=== PATIENT | female | born 1995 ===

== ENCOUNTER → 2021-10-30 | Outpatient (CLI) | payer OTHER | END | disposition home or self-care (01) | LOC: LABWHC1 09:17 | PROVIDERS: ATTEND Obstetrics & Gynecology | DX: O20.0 Threatened abortion (principal); Z3A.00 Weeks of gestation of pregnancy not specified | CPT/HCPCS: 36415; 84702 ==

== ENCOUNTER 2021-12-31 16:54 | Emergency (ER) | payer OTHER ==
[2021-12-31 17:20] VITALS: BP 108/71; PULSE 60; RESP 16; TEMP 98.6
[2021-12-31] MEDS ORDERED: KETOROLAC 15 MG/ML 1 ML VIAL IM STA (19:11)
[2021-12-31] MEDS ORDERED: HYDROcodone/APAP 5-325MG 1 EACH TAB PO STA (19:11)
--- NOTE | 2021-12-31 19:19 | ED ---
ENT HPI - General Chief complaint: ENT Stated complaint: R ear pain Time Seen by Provider: 12/31/21 19:06 Source: patient, RN notes reviewed Mode of arrival: ambulatory Limitations: no limitations - History of Present Illness Initial comments: This is a pleasant 26-year-old female with a history of seizure disorder. She presents to the emergency department today complaining of right ear pain was going about 48 hours. She states movement of the external ear exacerbates the pain. Fever chills. Patient states the pain seems to be getting worse. Patient is been trying [id number] ibuprofen. She also had some old antibiotic drops that she got from a friend that she has been using. No headache, no fever or chills, no changes in vision no sore throat or difficulty with speech, no neck pain, no chest pain or shortness of breath, no abdominal pain, no nausea or vomiting, no changes in urination or bowel movements, no numbness or tingling, no extremity pain, no skin rashes or lesions. MD complaint: ear pain - Related Data Previous Rx's Medication Instructions Recorded Ciprofloxacin-Dexameth [Ciprodex 4 drops RIGHT EAR BID #7.5 ml 12/31/21 Otic Susp] HYDROcodone/APAP 5-325MG [[place] 1 tab PO Q6HR PRN 3 Days #12 tab 12/31/21 5-325] Ibuprofen [Motrin] 600 mg PO Q8HR PRN #30 tab 12/31/21 Allergies Allergy/AdvReac Type Severity Reaction Status Date / Time bee venom protein (honey bee) Allergy Anaphylaxis Verified 12/31/21 17:16 Review of Systems ROS Statement: Those systems with pertinent positive or pertinent negative responses have been documented in the HPI. ROS Other: All systems not noted in ROS Statement are negative. Past Medical History Past Medical History: Seizure Disorder History of Any Multi-Drug Resistant Organisms: None Reported Additional Past Surgical History / Comment(s): EGD, Uterine ablation Past Psychological History: No Psychological Hx Reported Smoking Status: Never smoker Past Alcohol Use History: None Reported Past Drug Use History: None Reported, Marijuana General Exam Limitations: no limitations General appearance: alert, in distress Head exam: Present: atraumatic, normocephalic, normal inspection Eye exam: Present: normal appearance, PERRL, EOMI. Absent: scleral icterus, conjunctival injection, periorbital swelling ENT exam: Present: normal exam, normal oropharynx, mucous membranes moist, other (Patient has partial cerumen bilaterally. There is edema to the right EAC. Patient has pain with movement of the auricle and pressure over the tragus. Tympanic membranes not visualized. Left TM is pearly freeman.). Absent: mucous membranes dry Neck exam: Present: normal inspection. Absent: tenderness, meningismus, lymphadenopathy Respiratory exam: Present: normal lung sounds bilaterally. Absent: respiratory distress, wheezes, rales, rhonchi, stridor Cardiovascular Exam: Present: regular rate, normal rhythm, normal heart sounds. Absent: systolic murmur, diastolic murmur, rubs, gallop, clicks GI/Abdominal exam: Present: soft, normal bowel sounds. Absent: distended, tenderness, guarding, rebound, rigid Extremities exam: Present: normal inspection, full ROM, normal capillary refill. Absent: tenderness, pedal edema, joint swelling, calf tenderness Back exam: Present: normal inspection Neurological exam: Present: alert, oriented X3, CN II-XII intact Psychiatric exam: Present: normal affect, normal mood Skin exam: Present: warm, dry, intact, normal color. Absent: rash Course Vital Signs 12/31/21 17:16 Temperature 98.6 F Pulse Rate 60 Respiratory 16 Rate Blood Pressure 108/71 O2 Sat by Pulse 96 Oximetry Medical Decision Making - Medical Decision Making She does have partial cerumen obstruction bilaterally. Patient has exquisite tenderness with movement of the right external ear and palpation over the tragus. There is edema to the canal. TM is not visualized on the right. No significant drainage. Certainly the patient would not tolerate irrigation of the ear at this time. I'm going to place the patient on antibiotic drops, Ciprodex was ordered. Patient will be given follow-up with your nose and throat. Discussed treatment plan. Patient concurs. Short course of [place] given for the patient's level of pain. Patient was told to return to the ER for any signs or symptoms worsen. Told to return immediately if any other problems arise. All questions answered. Treatment plan discussed. Patient in agreement Every effort has been made to ensure accuracy of this dictation. However, due to the limitations of electronic medical records and dictation devices, errors in charting still occur. Supervising physician is Dr. Banegas Disposition Clinical Impression: Otitis externa Narrative: Otitis externa, right ear Disposition: HOME SELF-CARE Condition: Good Instructions (If sedation given, give patient instructions): Swimmer's Ear (ED) Additional Instructions: Eardrops as directed. Continue ibuprofen with pain medicine. Make an appointment with ENT doctor. Call first thing Tuesday morning for the follow-up appointment. Use eardrops for the 7 days. Follow-up with your regular physician as directed. Return to the ER immediately if any symptoms worsen, new symptoms arise, or any other problems develop. Is patient prescribed a controlled substance at d/c from ED?: Yes When asked, does pt state using other controlled substances?: No If prescribed controlled substance>3 days was MAPS reviewed?: Prescribed <3 Days Referrals: Sky Sharma MD [STAFF PHYSICIAN] - 01/05/22 Time of Disposition: 19:17
== END 2021-12-31 19:22 | disposition home or self-care (01) ==
LOC: EC 16:54
DX: H92.01 Otalgia, right ear (principal); Z91.030 Bee allergy status
CPT/HCPCS: 99284; 96372; J1885

== ENCOUNTER 2022-04-16 21:42 | Emergency (ER) | payer OTHER ==
[2022-04-16 21:48] VITALS: TEMP 98.1
[2022-04-16] MEDS ORDERED: SODIUM CHLORIDE 0.9% 1,000 ML IV STA (22:35)
[2022-04-16 23:21] LABS: Basophils % (A) 0 %; Eosinophils % (A) 0 %; HCT 37.6 % (34.0-46.0); HGB 11.9 gm/dL (11.4-16.0); Lymphocytes # (A) 0.9 k/uL (1.0-4.8); Lymphocytes % (A) 11 %; MCH 27.6 pg (25.0-35.0); MCHC 31.5 g/dL (31.0-37.0); MCV 87.5 fL (80.0-100.0); Mean Platelet Volume 7.2; Monocytes # (A) 0.1 k/uL (0-1.0); Monocytes % (A) 1 %; Neutrophils # (A) 7.6 k/uL (1.3-7.7); Neutrophils % (A) 87 %; Platelet Count 361 k/uL (150-450); RDW 12.8 % (11.5-15.5); WBC 8.7 k/uL (3.8-10.6)
[2022-04-16 23:32] LABS: Appearance,Urine Clear (Clear); Bilirubin,Urine Negative (Negative); Blood,Urine Negative (Negative); Color,Urine Yellow; Glucose,Urine (UA) Negative (Negative); Ketones,Urine Negative (Negative); Leukocyte Esterase,Urine Negative (Negative); Nitrite,Urine Negative (Negative); PH, Urine 7.5 (5.0-8.0); Protein,Urine Trace (Negative); Specific Gravity,Urine 1.027 (1.001-1.035); Urobilinogen,Urine <2.0 mg/dL (<2.0)
[2022-04-16] MEDS ORDERED: LORazepam 2 MG/ML INJ IV STA (23:34)
[2022-04-16 23:52] LABS: Amphetamine Screen,Urine Not Detected (NotDetected); Barbiturate Screen,Urine Not Detected (NotDetected); Benzodiazepines Screen,Urine Detected (NotDetected); Cocaine Screen,Urine Not Detected (NotDetected); Methadone Screen, Urine Not Detected (NotDetected); Opiate Screen,Urine Not Detected (NotDetected); Oxycodone Screen, Urine Not Detected (NotDetected); Phencyclidine Screen,Urine Not Detected (NotDetected); Tricyclic Antidepressant,Urine Not Detected (NotDetected); Urn Cannabinoid Scrn Not Detected (NotDetected)
[2022-04-16 23:58] LABS: ALT 24 U/L (4-34); AST 26 U/L (14-36); African American GFR (CKD) >90 (>60 ml/min/1.73 sqM); Albumin 4.5 g/dL (3.5-5.0); Alcohol <10 mg/dL; Alkaline Phosphatase 67 U/L (38-126); Anion Gap 14 mmol/L; Blood Urea Nitrogen 12 mg/dL (7-17); Calcium 9.6 mg/dL (8.4-10.2); Carbon Dioxide 21 mmol/L (22-30); Chloride 105 mmol/L (98-107); Glucose 142 mg/dL (74-99); Magnesium 1.9 mg/dL (1.6-2.3); Non-African American GFR(CKD) >90 (>60 ml/min/1.73 sqM); Potassium 4.4 mmol/L (3.5-5.1); Sodium 140 mmol/L (137-145); Total Bilirubin 0.1 mg/dL (0.2-1.3); Total Protein 7.4 g/dL (6.3-8.2)
--- NOTE | 2022-04-17 00:31 | ED ---
Back Pain HPI - General Chief Complaint: Back Pain/Injury Stated Complaint: Dizziness, back pain Time Seen by Provider: 04/16/22 22:23 Source: patient - History of Present Illness Initial Comments: Patient is a 27-year-old female with history seizure disorder presenting with chief complaint of back pain. Patient states that she is flareup of her chronic back pain every few months, this requires a steroid shot. She states that when she has this episode she has numbness down the bilateral legs. Patient was seen by her PCP and given prednisone for her symptoms, states that she took the prednisone around 5:00 today and then took a nap, when she woke up from the nap she felt "funny". She is sensitive to light and states that she couldn't stop frequently blinking. Patient states that she took her Keppra 500 mg today. She denies any loss of bowel or bladder control or saddle paresthesia. Denies any chest pain or shortness of breath. No abdominal pain, nausea, vomiting, flank pain, fever, chills. - Related Data Previous Rx's Medication Instructions Recorded Ciprofloxacin-Dexameth [Ciprodex 4 drops RIGHT EAR BID #7.5 ml 12/31/21 Otic Susp] HYDROcodone/APAP 5-325MG [[place] 1 tab PO Q6HR PRN 3 Days #12 tab 12/31/21 5-325] Ibuprofen [Motrin] 600 mg PO Q8HR PRN #30 tab 12/31/21 methylPREDNISolone Dose Pack 4 mg PO DIRECTED #1 packet 04/17/22 [Medrol Dose Pack] Allergies Allergy/AdvReac Type Severity Reaction Status Date / Time bee venom protein (honey bee) Allergy Anaphylaxis Verified 04/16/22 21:48 Review of Systems ROS Statement: Those systems with pertinent positive or pertinent negative responses have been documented in the HPI. ROS Other: All systems not noted in ROS Statement are negative. Past Medical History Past Medical History: Seizure Disorder History of Any Multi-Drug Resistant Organisms: None Reported Additional Past Surgical History / Comment(s): EGD, Uterine ablation Past Psychological History: No Psychological Hx Reported Smoking Status: Never smoker Past Alcohol Use History: None Reported Past Drug Use History: None Reported, Marijuana General Exam Limitations: altered mental status General appearance: appears intoxicated Head exam: Present: atraumatic, normocephalic, normal inspection Eye exam: Present: normal appearance, PERRL, EOMI. Absent: scleral icterus, periorbital swelling Neck exam: Present: normal inspection Respiratory exam: Present: normal lung sounds bilaterally. Absent: respiratory distress, wheezes, rales, rhonchi, stridor Cardiovascular Exam: Present: regular rate, normal rhythm, normal heart sounds. Absent: systolic murmur, diastolic murmur, rubs, gallop, clicks Neurological exam: Present: alert, oriented X3, CN II-XII intact Psychiatric exam: Present: normal affect, normal mood Skin exam: Present: warm, dry, intact, normal color. Absent: rash Course Vital Signs 04/16/22 04/16/22 04/17/22 21:45 23:30 00:00 Temperature 98.1 F Pulse Rate 82 137 H 131 H Respiratory 18 18 16 Rate Blood Pressure 133/70 141/78 123/80 O2 Sat by Pulse 97 95 94 L Oximetry 04/17/22 04/17/22 01:53 02:57 Temperature Pulse Rate 131 H 73 Respiratory 16 16 Rate Blood Pressure 123/80 145/84 O2 Sat by Pulse 94 L 95 Oximetry Medical Decision Making - Medical Decision Making Patient is a 27-year-old female history of seizures presenting with chief complaint of back pain. Patient states this feels like her regular back pain flareups, and is accompanied with leg numbness and tingling bilaterally. She denies any saddle paresthesia or loss of bowel or bladder control. Patient also states that she feels "funny". She admits to some brain fog, this started after she woke up from a nap this evening, prior to the nap she took prednisone for her back pain. On examination patient is somewhat altered, she can answer questions appropriately but appears to be intoxicated. She has full range of motion of the extremities, full strength and sensation. Lab work is grossly negative. No leukocytosis, electrolytes are WNL. CRP is 0.6. Urine shows no acute process. Urine toxicology is positive for benzodiazepines. Patient did have a seizure during stay in the ER, she was given [address] of the brain shows no acute process. On reassessment patient is able to answer questions, she is fatigued, she is able to follow commands. She appears stable for discharge with outpatient follow-up at this time.Follow-up with PCP and neurologist. Report back to ER with any new or worsening symptoms. Discussed return parameters and answered all questions. Patient conveyed verbal understanding and agreed to the plan. I discussed this case with my attending Dr. Chiu. - Lab Data Result diagrams: 04/16/22 22:52 04/16/22 22:52 Lab Results 04/16/22 04/16/22 04/16/22 Range/Units 22:52 22:52 22:52 WBC 8.7 (3.8-10.6) k/uL RBC 4.30 (3.80-5.40) m/uL Hgb 11.9 (11.4-16.0) gm/dL Hct 37.6 (34.0-46.0) % MCV 87.5 (80.0-100.0) fL MCH 27.6 (25.0-35.0) pg MCHC 31.5 (31.0-37.0) g/dL RDW 12.8 (11.5-15.5) % Plt Count 361 (150-450) k/uL MPV 7.2 Neutrophils % 87 % Lymphocytes % 11 % Monocytes % 1 % Eosinophils % 0 % Basophils % 0 % Neutrophils # 7.6 (1.3-7.7) k/uL Lymphocytes # 0.9 L (1.0-4.8) k/uL Monocytes # 0.1 (0-1.0) k/uL Eosinophils # 0.0 (0-0.7) k/uL Basophils # 0.0 (0-0.2) k/uL Sodium 140 (137-145) mmol/L Potassium 4.4 (3.5-5.1) mmol/L Chloride 105 (98-107) mmol/L Carbon Dioxide 21 L (22-30) mmol/L Anion Gap 14 mmol/L BUN 12 (7-17) mg/dL Creatinine 0.68 (0.52-1.04) mg/dL Est GFR (CKD-EPI)AfAm >90 (>60 ml/min/1.73 sqM) Est GFR (CKD-EPI)NonAf >90 (>60 ml/min/1.73 sqM) Glucose 142 H (74-99) mg/dL Calcium 9.6 (8.4-10.2) mg/dL Magnesium 1.9 (1.6-2.3) mg/dL Total Bilirubin 0.1 L (0.2-1.3) mg/dL AST 26 (14-36) U/L ALT 24 (4-34) U/L Alkaline Phosphatase 67 (38-126) U/L C-Reactive Protein (<1.0) mg/dL Total Protein 7.4 (6.3-8.2) g/dL Albumin 4.5 (3.5-5.0) g/dL Urine Color Yellow Urine Appearance Clear (Clear) Urine pH 7.5 (5.0-8.0) Ur Specific [place] 1.027 (1.001-1.035) Urine Protein Trace H (Negative) Urine Glucose (UA) Negative (Negative) Urine Ketones Negative (Negative) Urine Blood Negative (Negative) Urine Nitrite Negative (Negative) Urine Bilirubin Negative (Negative) Urine Urobilinogen <2.0 (<2.0) mg/dL Ur Leukocyte Esterase Negative (Negative) Urine Opiates Screen Not Detected (NotDetected) Ur Oxycodone Screen Not Detected (NotDetected) Urine Methadone Screen Not Detected (NotDetected) Ur Propoxyphene Screen Not Detected (NotDetected) Ur Barbiturates Screen Not Detected (NotDetected) U Tricyclic Antidepress Not Detected (NotDetected) Ur Phencyclidine Scrn Not Detected (NotDetected) Ur Amphetamines Screen Not Detected (NotDetected) U Methamphetamines Scrn Not Detected (NotDetected) U Benzodiazepines Scrn Detected H (NotDetected) Urine Cocaine Screen Not Detected (NotDetected) U Marijuana (THC) Screen Not Detected (NotDetected) Serum Alcohol <10 mg/dL 04/16/22 Range/Units 22:52 WBC (3.8-10.6) k/uL RBC (3.80-5.40) m/uL Hgb (11.4-16.0) gm/dL Hct (34.0-46.0) % MCV (80.0-100.0) fL MCH (25.0-35.0) pg MCHC (31.0-37.0) g/dL RDW (11.5-15.5) % Plt Count (150-450) k/uL MPV Neutrophils % % Lymphocytes % % Monocytes % % Eosinophils % % Basophils % % Neutrophils # (1.3-7.7) k/uL Lymphocytes # (1.0-4.8) k/uL Monocytes # (0-1.0) k/uL Eosinophils # (0-0.7) k/uL Basophils # (0-0.2) k/uL Sodium (137-145) mmol/L Potassium (3.5-5.1) mmol/L Chloride (98-107) mmol/L Carbon Dioxide (22-30) mmol/L Anion Gap mmol/L BUN (7-17) mg/dL Creatinine (0.52-1.04) mg/dL Est GFR (CKD-EPI)AfAm (>60 ml/min/1.73 sqM) Est GFR (CKD-EPI)NonAf (>60 ml/min/1.73 sqM) Glucose (74-99) mg/dL Calcium (8.4-10.2) mg/dL Magnesium (1.6-2.3) mg/dL Total Bilirubin (0.2-1.3) mg/dL AST (14-36) U/L ALT (4-34) U/L Alkaline Phosphatase (38-126) U/L C-Reactive Protein 0.6 (<1.0) mg/dL Total Protein (6.3-8.2) g/dL Albumin (3.5-5.0) g/dL Urine Color Urine Appearance (Clear) Urine pH (5.0-8.0) Ur Specific [place] (1.001-1.035) Urine Protein (Negative) Urine Glucose (UA) (Negative) Urine Ketones (Negative) Urine Blood (Negative) Urine Nitrite (Negative) Urine Bilirubin (Negative) Urine Urobilinogen (<2.0) mg/dL Ur Leukocyte Esterase (Negative) Urine Opiates Screen (NotDetected) Ur Oxycodone Screen (NotDetected) Urine Methadone Screen (NotDetected) Ur Propoxyphene Screen (NotDetected) Ur Barbiturates Screen (NotDetected) U Tricyclic Antidepress (NotDetected) Ur Phencyclidine Scrn (NotDetected) Ur Amphetamines Screen (NotDetected) U Methamphetamines Scrn (NotDetected) U Benzodiazepines Scrn (NotDetected) Urine Cocaine Screen (NotDetected) U Marijuana (THC) Screen (NotDetected) Serum Alcohol mg/dL - EKG Data EKG Comments: Sinus rhythm with sinus arrhythmia rate of 74. VT interval 162. QRS duration 74. QT/QTc 403/430. Normal axis. No ischemic ST or T-wave changes. Disposition Clinical Impression: Seizure Disposition: HOME SELF-CARE Condition: Good Instructions (If sedation given, give patient instructions): Acute Low Back Pain (ED), Recurrent Seizures in Adults (ED) Additional Instructions: Follow-up with PCP and neurologist on Tuesday. Report back to ER if any new or worsening symptoms. Prescriptions: methylPREDNISolone Dose Pack [Medrol Dose Pack] 4 mg PO DIRECTED #1 packet Is patient prescribed a controlled substance at d/c from ED?: No Referrals: Maurilio De DO [Primary Care Provider] - 1-2 days Time of Disposition: 03:02
--- NOTE | 2022-04-17 01:00 | CT ---
EXAMINATION TYPE: CT brain wo con DATE OF EXAM: 04/17/2022 COMPARISON: None HISTORY: DIZZINESS AND BACK PAIN CT DLP: 1076.4 mGycm Automated exposure control for dose reduction was used. Images obtained of the brain with no contrast. Ventricles have normal size. There is no mass effect or midline shift. No sign of intracranial hemorr swetha. Calvarium is intact. No evidence of cerebral edema. Skull base is intact. There is normal aerat ion of the mastoid sinuses. IMPRESSION: Normal unenhanced head CT scan.
[2022-04-17 01:53] VITALS: RESP 16
[2022-04-17 02:59] VITALS: PULSE 73
[2022-04-17 03:01] VITALS: BP 145/84
== END 2022-04-17 03:32 | disposition home or self-care (01) ==
LOC: EC 21:42
DX: R56.9 Unspecified convulsions (principal); Z91.030 Bee allergy status
CPT/HCPCS: 36415; 93005; 80053; 80177; 83735; 85025; 86140; 81003; 80306; 70450; 99284; 96374; 96361; G0480; J2060; 80320

== ENCOUNTER 2022-05-31 04:29 | Emergency (ER) | payer OTHER ==
[2022-05-31 04:36] VITALS: BP 121/76; RESP 16; TEMP 98.4
--- NOTE | 2022-05-31 06:46 | ED ---
ENT HPI - General Chief complaint: ENT Stated complaint: Sore throat Time Seen by Provider: 05/31/22 06:02 Source: patient, RN notes reviewed Mode of arrival: ambulatory Limitations: no limitations - History of Present Illness Initial comments: 27-year-old female presents emergency department tingling sore throat congestion. Patient states she had no fever. Patient states the family has similar symptoms improving symptoms at this time. She has no abdominal complaints including nausea, vomiting, diarrhea constipation. Patient had no reported fever. Patient's tried no [id number] cough and cold medications. Patient had no sick contacts other than her significant other. - Related Data Previous Rx's Medication Instructions Recorded Ciprofloxacin-Dexameth [Ciprodex 4 drops RIGHT EAR BID #7.5 ml 12/31/21 Otic Susp] HYDROcodone/APAP 5-325MG [[place] 1 tab PO Q6HR PRN 3 Days #12 tab 12/31/21 5-325] Ibuprofen [Motrin] 600 mg PO Q8HR PRN #30 tab 12/31/21 methylPREDNISolone Dose Pack 4 mg PO DIRECTED #1 packet 04/17/22 [Medrol Dose Pack] Allergies Allergy/AdvReac Type Severity Reaction Status Date / Time bee venom protein (honey bee) Allergy Anaphylaxis Verified 05/31/22 04:32 Review of Systems ROS Statement: Those systems with pertinent positive or pertinent negative responses have been documented in the HPI. ROS Other: All systems not noted in ROS Statement are negative. Past Medical History Past Medical History: Seizure Disorder History of Any Multi-Drug Resistant Organisms: None Reported Past Surgical History: Uterine Ablation Additional Past Surgical History / Comment(s): EGD, Uterine ablation , D and C Past Psychological History: Anxiety, Depression Smoking Status: Never smoker Past Alcohol Use History: Rare Past Drug Use History: None Reported, Marijuana General Exam Limitations: no limitations General appearance: alert, in no apparent distress Head exam: Present: atraumatic, normocephalic, normal inspection Eye exam: Present: normal appearance, PERRL, EOMI. Absent: scleral icterus, conjunctival injection, periorbital swelling ENT exam: Present: normal exam, normal oropharynx, mucous membranes moist Neck exam: Present: normal inspection, full ROM. Absent: tenderness, meningismus, lymphadenopathy Respiratory exam: Present: normal lung sounds bilaterally. Absent: respiratory distress, wheezes, rales, rhonchi, stridor Cardiovascular Exam: Present: regular rate, normal rhythm, normal heart sounds. Absent: systolic murmur, diastolic murmur, rubs, gallop, clicks Course Vital Signs 05/31/22 05/31/22 04:32 07:05 Temperature 98.4 F Pulse Rate 66 83 Respiratory 16 16 Rate Blood Pressure 121/76 O2 Sat by Pulse 98 99 Oximetry Medical Decision Making - Medical Decision Making patient is negative COVID-19, negative strep. Patient discharged in stable condition return parameters discussed. - Lab Data Lab Results 05/31/22 05/31/22 Range/Units 05:31 05:31 Coronavirus (PCR) Not Detected (Not Detectd) Group A Strep Rapid Negative (Negative) Disposition Clinical Impression: Acute viral pharyngitis, URI (upper respiratory infection) Disposition: HOME SELF-CARE Condition: Stable Instructions (If sedation given, give patient instructions): Pharyngitis (ED) Additional Instructions: Please return to the Emergency Department if symptoms worsen or any other concerns. Is patient prescribed a controlled substance at d/c from ED?: No Referrals: Maurilio De DO [Primary Care Provider] - 1-2 days Time of Disposition: 06:46
[2022-05-31 07:07] VITALS: PULSE 83
== END 2022-05-31 07:14 | disposition home or self-care (01) ==
LOC: EC 04:29
DX: J02.9 Acute pharyngitis, unspecified (principal); J06.9 Acute upper respiratory infection, unspecified; Z20.822 Contact with and (suspected) exposure to COVID-19
CPT/HCPCS: 87081; 87430; 87635; 99283

== ENCOUNTER 2022-06-16 08:26 | Emergency (ER) | payer OTHER ==
[2022-06-16 08:32] VITALS: BP 115/79; PULSE 79; RESP 16; TEMP 97.9
--- NOTE | 2022-06-16 08:51 | ED ---
Lower Extremity Injury HPI - General Chief Complaint: Extremity Injury, Lower Stated Complaint: rt ankle injury Time Seen by Provider: 06/16/22 08:33 Source: patient, RN notes reviewed Mode of arrival: ambulatory Limitations: no limitations - History of Present Illness Initial Comments: 27-year-old female who states she slipped going off her porch today she's not sure exactly she fell from the top of a porch her from a stop she fell the ground she has no head neck or back pain she complains of left hip area pain also right knee ankle and foot pain. She has a history of peripheral neuropathy. No fevers chills sweats she denies any chance being at this time. MD Complaint: leg injury, ankle injury, foot injury - Related Data Previous Rx's Medication Instructions Recorded Ciprofloxacin-Dexameth [Ciprodex 4 drops RIGHT EAR BID #7.5 ml 12/31/21 Otic Susp] HYDROcodone/APAP 5-325MG [[place] 1 tab PO Q6HR PRN 3 Days #12 tab 12/31/21 5-325] Ibuprofen [Motrin] 600 mg PO Q8HR PRN #30 tab 12/31/21 methylPREDNISolone Dose Pack 4 mg PO DIRECTED #1 packet 04/17/22 [Medrol Dose Pack] Allergies Allergy/AdvReac Type Severity Reaction Status Date / Time bee venom protein (honey bee) Allergy Severe Anaphylaxis Verified 06/16/22 08:32 Review of Systems ROS Statement: Those systems with pertinent positive or pertinent negative responses have been documented in the HPI. ROS Other: All systems not noted in ROS Statement are negative. Past Medical History Past Medical History: Fibromyalgia, Seizure Disorder Additional Past Medical History / Comment(s): clotting disorder, PCOS History of Any Multi-Drug Resistant Organisms: None Reported Past Surgical History: Uterine Ablation Additional Past Surgical History / Comment(s): EGD, D and C Past Psychological History: Anxiety, Depression Smoking Status: Never smoker Past Alcohol Use History: Rare Past Drug Use History: None Reported, Marijuana General Exam - General Exam Comments Initial Comments: This is a well-developed well-nourished awake alert oriented 4 female [place] Coma Scale of 15 Limitations: no limitations General appearance: alert, in no apparent distress Head exam: Present: atraumatic, normocephalic, normal inspection Eye exam: Present: normal appearance, PERRL, EOMI. Absent: scleral icterus, conjunctival injection, periorbital swelling ENT exam: Present: normal exam, mucous membranes moist Neck exam: Present: normal inspection. Absent: tenderness, meningismus, lymphadenopathy Respiratory exam: Present: normal lung sounds bilaterally. Absent: respiratory distress, wheezes, rales, rhonchi, stridor Cardiovascular Exam: Present: regular rate, normal rhythm, normal heart sounds. Absent: systolic murmur, diastolic murmur, rubs, gallop, clicks GI/Abdominal exam: Present: soft, normal bowel sounds. Absent: distended, tenderness, guarding, rebound, rigid Extremities exam: Present: full ROM, normal capillary refill, other (Tenderness palpation of the anterior superior tibia also pain over the lateral malleolus on the right and tenderness along the lateral aspect of the foot no definitive deformity. Additionally there is some tenderness palpation of the seizures. BiliOn the left. No abrasion seen.). Absent: tenderness, pedal edema, joint swelling, calf tenderness Back exam: Present: normal inspection Neurological exam: Present: alert, oriented X3, CN II-XII intact Psychiatric exam: Present: normal affect, normal mood Skin exam: Present: warm, dry, intact, normal color. Absent: rash Course Vital Signs 06/16/22 08:27 Temperature 97.9 F Pulse Rate 79 Respiratory 16 Rate Blood Pressure 115/79 O2 Sat by Pulse 99 Oximetry Medical Decision Making - Medical Decision Making Did discuss findings with patient she'll be discharged she had an Maulik wrap placed on the right ankle. The presentation consistent with a right ankle sprain as well as contusions. Patient will be discharged she will follow-up with her doctor and return when necessary - Radiology Data Radiology results: report reviewed (Imaging reviewed as well as reports no evidence of acute fractures), image reviewed Disposition Clinical Impression: Fall, Right ankle sprain, Multiple contusions Disposition: HOME SELF-CARE Condition: Good Instructions (If sedation given, give patient instructions): Ankle Sprain (ED), Contusion in Adults (ED) Additional Instructions: [id number] Tylenol for pain ice 24-48 hours to affected areas, weight- bear as tolerated Is patient prescribed a controlled substance at d/c from ED?: No Referrals: Maurilio De DO [Primary Care Provider] - 1-2 days Decision Date: 06/16/22 Decision Time: 09:44
--- NOTE | 2022-06-16 09:14 | XR ---
EXAMINATION TYPE: XR ankle complete RT DATE OF EXAM: 06/16/2022 COMPARISON: NONE HISTORY: Pain FINDINGS: Three views of the ankle demonstrate the ankle mortise to be intact and symmetric. The joint spaces are preserved. The osseous structures are intact. A tiny calcaneal spur noted. IMPRESSION: 1. No definite acute fracture or dislocation, if symptoms persist follow-up study in 7 to 10 days wou ld be suggested.
--- NOTE | 2022-06-16 09:16 | XR ---
EXAMINATION TYPE: XR pelvis AP view DATE OF EXAM: 06/16/2022 COMPARISON: NONE HISTORY: Pain The osseous structures are intact and the joint spaces are preserved. No acute fracture is seen. Vi sualized bowel gas pattern is nonspecific. Question bone island overlying the left iliac bone. SI philip ints are symmetric. Bilateral pelvic calcifications are seen. Spina bifida occulta coccyx. IMPRESSION: 1. No acute fracture.
--- NOTE | 2022-06-16 09:17 | XR ---
EXAMINATION TYPE: XR foot complete RT DATE OF EXAM: 06/16/2022 COMPARISON: NONE HISTORY: Pain TECHNIQUE: Three views are submitted. FINDINGS: The osseous structures are intact. There is no acute fracture or dislocation. Joint spaces are p reserved. IMPRESSION: 1. No acute fracture or dislocation. If symptoms persist, follow-up exam in 7 to 10 days could be ob tained.
--- NOTE | 2022-06-16 09:19 | XR ---
EXAMINATION TYPE: XR tibia fibula RT DATE OF EXAM: 06/16/2022 COMPARISON: NONE HISTORY: Pain TECHNIQUE: Two views are submitted. FINDINGS: The osseous structures are intact. The joint spaces are preserved. IMPRESSION: 1. No acute osseous abnormality.
== END 2022-06-16 09:42 | disposition home or self-care (01) ==
LOC: EC 08:26
DX: S93.401A Sprain of unspecified ligament of right ankle, initial encounter (principal); Z91.030 Bee allergy status; W17.89XA Other fall from one level to another, initial encounter
CPT/HCPCS: 72170; 99283

== ENCOUNTER → 2022-06-28 | Outpatient (CLI) | payer OTHER ==
[2022-06-28 13:08] LABS: Partial Thromboplastin Time 25.4 sec (22.0-30.0); Prothrombin Time 10.8 sec (9.0-12.0)
[2022-06-28 18:04] LABS: Basophils # (A) 0.03 X 10*3/uL (0.00-0.10); Basophils % (A) 0.4 %; Eosinophils # (A) 0.17 X 10*3/uL (0.04-0.35); Eosinophils % (A) 2.1 %; HGB 11.7 g/dL (12.0-15.0); Immature Grans, Automated 0.1 %; Lymphocytes # (A) 3.25 X 10*3/uL (0.90-5.00); Lymphocytes % (A) 40.7 %; MCH 27.5 pg (27.0-32.0); MCHC 31.6 g/dL (32.0-37.0); MCV 86.9 fL (80.0-97.0); Mean Platelet Volume 10.7 fL (9.5-12.2); Monocytes # (A) 0.41 X 10*3/uL (0.20-1.00); Monocytes % (A) 5.1 %; NRBC Per 100 WBC 0 /100 WBCS (0.0-0.0); Neutrophils # (A) 4.12 X 10*3/uL (1.80-7.70); Neutrophils % (A) 51.6 %; Platelet Count 423 X 10*3/uL (140-440); RBC 4.26 X 10*6/uL (4.10-5.20); RDW 13.1 % (11.5-14.5); WBC 7.99 X 10*3/uL (4.50-10.00)
[2022-06-29 10:43] LABS: Protein C (Activity) 93 % (71-138)
== END | disposition home or self-care (01) ==
LOC: LABWHC1 11:37
PROVIDERS: ATTEND Internal Medicine Medical Oncology
DX: O03.9 Complete or unspecified spontaneous abortion without complication (principal)
CPT/HCPCS: 36415; 85025; 85246; 85303; 85306; 85610; 85730

== ENCOUNTER 2024-02-20 18:16 | Emergency (ER) | payer OTHER ==
[2024-02-20 18:21] VITALS: RESP 18; TEMP 98.4
[2024-02-20] MEDS ORDERED: HYDROmorphone 1 MG/ML 1 ML SYRINGE IM STA (19:13)
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
[2024-02-20 19:47] VITALS: BP 112/75; PULSE 75
[2024-02-20] MEDS: KETOROLAC 15 MG/ML 1 ML VIAL IM STA (19:57)
[2024-02-20] MEDS: MORPHINE SULFATE 4 MG/ML SYRINGE IM STA (19:58)
== END 2024-02-20 20:09 | disposition home or self-care (01) ==
LOC: EC 18:16
DX: M54.50 Low back pain, unspecified (principal); Z91.030 Bee allergy status
CPT/HCPCS: 99283; 96372 ×3; J2270; J1885

== ENCOUNTER → 2024-03-13 | Outpatient (CLI) | payer OTHER ==
[2024-03-13 15:56] LABS: Basophils # (A) 0.03 X 10*3/uL (0.00-0.10); Basophils % (A) 0.4 %; Eosinophils # (A) 0.22 X 10*3/uL (0.04-0.35); Eosinophils % (A) 3.2 %; HGB 12.5 g/dL (12.0-15.0); Lymphocytes % (A) 44.8 %; MCH 28.5 pg (27.0-32.0); MCHC 32.1 g/dL (32.0-37.0); Mean Platelet Volume 9.8 FL (9.5-12.2); Monocytes # (A) 0.39 X 10*3/uL (0.20-1.00); Monocytes % (A) 5.6 %; NRBC Per 100 WBC 0 X 10*3/uL (0.00-0.01); Neutrophils # (A) 3.17 X 10*3/uL (1.80-7.70); Neutrophils % (A) 45.9 %; Platelet Count 422 X 10*3/uL (140-440); RBC 4.38 X 10*6/uL (4.10-5.20); RDW 12.8 % (11.5-14.5); WBC 6.92 X 10*3/uL (4.50-10.00)
[2024-03-13 16:15] LABS: % Iron Saturation 12.23 (12.00-45.00); Estradiol 48.3 pg/mL; Glucose 98 mg/dL (70-110); HCG,Quantitative Serum <3.0 mIU/mL (0.0-6.0); Iron 51 UG/DL (50-170); Total Iron Binding Capacity 417 UG/DL (228-460)
[2024-03-13 16:16] LABS: T4, Free (Free Thyroxine) 1.19 ng/dL (0.80-1.80)
[2024-03-13 17:11] LABS: Follicle Stimulating Hormone 4.5 mIU/mL; Luteinizing Hormone 5.6 mIU/mL; Progesterone 0.3 ng/mL
[2024-03-13 19:16] LABS: Insulin Level 46.9 mIU/mL (3.0-25.0)
== END | disposition home or self-care (01) ==
LOC: LABWHC1 10:05
PROVIDERS: ATTEND Obstetrics & Gynecology
DX: N93.9 Abnormal uterine and vaginal bleeding, unspecified (principal)
CPT/HCPCS: 36415; 82627; 82670; 82947; 83001; 83002; 83498; 83525; 83540; 83550; 84144; 84146; 84402; 84403; 84439; 84481; 84702; 85025

== ENCOUNTER → 2024-03-23 | Outpatient (CLI) | payer OTHER | END | disposition home or self-care (01) | LOC: LABWHC1 08:09 | PROVIDERS: ATTEND Obstetrics & Gynecology | DX: R73.9 Hyperglycemia, unspecified (principal) | CPT/HCPCS: 36415; 83525 ==

== ENCOUNTER → 2024-04-27 | Outpatient (CLI) | payer OTHER ==
[2024-04-28 04:53] LABS: C Reactive Protein, High Sens 2.44 mg/L (0.000-3.000)
== END | disposition home or self-care (01) ==
LOC: LABWHC1 15:31
PROVIDERS: ATTEND Obstetrics & Gynecology Maternal & Fetal Medicine
DX: N96 Recurrent pregnancy loss (principal)
CPT/HCPCS: 36415; 82306; 86141

== ENCOUNTER 2024-05-02 06:24 | Emergency (ER) | payer OTHER ==
[2024-05-02 06:31] VITALS: BP 111/76; PULSE 57; RESP 18; TEMP 97.9
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
[2024-05-02] MEDS: ACET/COD 300 MG/30 MG STARTER PACK 6 TAB BTL PO STA (07:04)
[2024-05-02] MEDS: MORPHINE SULFATE 4 MG/ML SYRINGE IM STA (07:05)
[2024-05-02] MEDS: KETOROLAC 15 MG/ML 1 ML VIAL IM STA (07:06)
== END 2024-05-02 07:14 | disposition home or self-care (01) ==
LOC: EC 06:24
DX: M54.50 Low back pain, unspecified
CPT/HCPCS: 96372; 99283

== ENCOUNTER → 2024-07-06 | Outpatient (CLI) | payer OTHER ==
[2024-07-06 18:15] LABS: Basophils # (A) 0.05 X 10*3/uL (0.00-0.10); Basophils % (A) 0.5 %; Eosinophils # (A) 0.25 X 10*3/uL (0.04-0.35); Eosinophils % (A) 2.6 %; HCT 39.6 % (37.2-46.3); HGB 12.3 g/dL (12.0-15.0); Lymphocytes # (A) 4.02 X 10*3/uL (0.90-5.00); Lymphocytes % (A) 41.4 %; MCH 27.4 pg (27.0-32.0); MCHC 31.1 g/dL (32.0-37.0); MCV 88.2 FL (80.0-97.0); Mean Platelet Volume 9.5 FL (9.5-12.2); Monocytes # (A) 0.48 X 10*3/uL (0.20-1.00); Monocytes % (A) 4.9 %; NRBC Per 100 WBC 0 X 10*3/uL (0.00-0.01); Neutrophils # (A) 4.86 X 10*3/uL (1.80-7.70); Neutrophils % (A) 50.2 %; Platelet Count 454 X 10*3/uL (140-440); RBC 4.49 X 10*6/uL (4.10-5.20); RDW 12.3 % (11.5-14.5)
== END | disposition home or self-care (01) ==
LOC: LABWHC1 13:04
PROVIDERS: ATTEND Obstetrics & Gynecology
DX: N92.1 Excessive and frequent menstruation with irregular cycle (principal)
CPT/HCPCS: 36415; 84702; 85025

== ENCOUNTER 2024-09-08 20:28 | Emergency (ER) | payer OTHER ==
[2024-09-08 20:33] VITALS: TEMP 98.7
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
[2024-09-08 21:26] LABS: Basophils % (A) 1 %; Eosinophils # (A) 0.3 k/uL (0-0.7); Eosinophils % (A) 4 %; HCT 35.7 % (34.0-46.0); HGB 11.7 gm/dL (11.4-16.0); Lymphocytes % (A) 40 %; MCH 28.1 pg (25.0-35.0); MCHC 32.6 g/dL (31.0-37.0); Mean Platelet Volume 6.7; Monocytes # (A) 0.3 k/uL (0-1.0); Monocytes % (A) 4 %; Neutrophils # (A) 3.7 k/uL (1.3-7.7); Neutrophils % (A) 49 %; Platelet Count 331 k/uL (150-450); RBC 4.15 m/uL (3.80-5.40); RDW 12.6 % (11.5-15.5); WBC 7.5 k/uL (3.8-10.6)
[2024-09-08 21:33] LABS: ALT 28 U/L (4-34); AST 26 U/L (14-36); African American GFR (CKD) >90 (>60 ml/min/1.73 sqM); Albumin 4.3 g/dL (3.5-5.0); Alkaline Phosphatase 56 U/L (38-126); Anion Gap 13 mmol/L; Blood Urea Nitrogen 11 mg/dL (7-17); Calcium 9.2 mg/dL (8.4-10.2); Carbon Dioxide 18 mmol/L (22-30); Chloride 107 mmol/L (98-107); Glucose 126 mg/dL (74-99); Non-African American GFR(CKD) >90 (>60 ml/min/1.73 sqM); Sodium 138 mmol/L (137-145); Total Bilirubin 0.2 mg/dL (0.2-1.3)
--- NOTE | 2024-09-08 22:04 | XR ---
EXAMINATION TYPE: XR chest 2V DATE OF EXAM: 09/08/2024 9:25 PM COMPARISON: None. CLINICAL INDICATION: Female, 29 years old with history of Chest Pain, TECHNIQUE: XR chest 2V view(s) obtained. FINDINGS: The heart size is upper limits of normal. The pulmonary vasculature is normal. The lungs are clear. IMPRESSION: 1. No acute pulmonary process. [facility], , 09/08/2024 10:02 PM
[2024-09-08 22:47] VITALS: BP 130/97; PULSE 75; RESP 16
== END 2024-09-08 22:47 | disposition home or self-care (01) ==
LOC: EC 20:28
DX: R07.89 Other chest pain (principal); Z91.030 Bee allergy status
CPT/HCPCS: 36415; 71046; 80053; 83735; 84484; 85025; 85379; 93005; 99285

== ENCOUNTER → 2024-10-23 | Outpatient (CLI) | payer OTHER ==
--- NOTE | 2024-10-23 15:42 | US ---
EXAMINATION TYPE: US venous doppler duplex [facility] DATE OF EXAM: 10/23/2024 3:28 PM COMPARISON: NONE CLINICAL INDICATION: Female, 29 years old with history of M79.661 PAIN IN RIGHT LOWER LEG M79.662 CHRISTINE N IN LE; bilateral leg pain, numbness, no h/o dvt TECHNIQUE: The lower extremity deep venous system is examined utilizing real time linear array sonog elijah with graded compression, color doppler sonography, and spectral doppler. SIDE PERFORMED: Bilateral FINDINGS: VESSELS IMAGED: Common Femoral Vein Deep Femoral Vein Greater Saphenous Vein * Femoral Vein Popliteal Vein Small Saphenous Vein * Proximal Calf Veins (* superficial vessels) Right Leg: Negative for DVT, Color Doppler imaging shows patency of the vessels. Spectral waveforms are within normal limits. Left Leg: Negative for DVT, Color Doppler imaging shows patency of the vessels. Spectral waveforms a re within normal limits. IMPRESSION: No ultrasound evidence for acute deep venous thrombosis bilaterally. [facility], , 10/23/2024 3:39 PM
== END | disposition home or self-care (01) ==
LOC: RADUSWWP 14:50
PROVIDERS: ATTEND Student in an Organized Health Care Education/Training Program
DX: M79.661 Pain in right lower leg (principal); M79.662 Pain in left lower leg; R20.0 Anesthesia of skin
CPT/HCPCS: 93970

== ENCOUNTER → 2024-11-05 | Outpatient (CLI) | payer OTHER ==
[2024-11-05 17:27] LABS: Anti-DNA, DS unit <1.0 IU/mL; Anti-Smith Ab Interp Negative (Negative); DNA Double-Stranded Negative (Negative)
[2024-11-05 17:28] LABS: Cardiolipin Ab IgG Interp Negative (Negative); Cardiolipin Ab IgM Interp Negative (Negative); Cardiolipin IgA Antibody <2.0 U/mL; Cardiolipin IgM Antibody <1.5 U/mL
== END | disposition home or self-care (01) ==
LOC: LABWHC1 10:52
PROVIDERS: ATTEND Student in an Organized Health Care Education/Training Program
DX: R20.0 Anesthesia of skin (principal)
CPT/HCPCS: 36415; 82306; 82607; 84443; 86038; 86147; 86225; 86235